=== PATIENT | female | born 1955 | race Caucasian/White ===

== ENCOUNTER → 2019-03-16 07:39 | Outpatient (CLI) | payer OTHER, SELFPAY ==
--- NOTE | 2019-03-16 | DI.RAD.S_ITS ---
PROCEDURE: FL SHOULDER INJECTION MR/CT RT INDICATIONS: Chronic right shoulder pain TECHNIQUE: The indications, alternatives, benefits, risks, and complications of the procedure were explained to the patient. Written informed consent was obtained and placed in the chart. The shoulder was examined fluoroscopically and a site for needle placement chosen for entry into the glenohumeral joint from an anterior approach. The skin was prepped and draped in a sterile fashion, and 1% lidocaine infiltrated from skin down to joint capsule. A spinal needle was inserted into the glenohumeral joint, and a small amount of iodinated contrast media injected to confirm intra-articular placement of the needle tip. This was followed by approximately 12 mL dilute solution of a gadolinium containing MR contrast agent. The needle was removed and a dressing was applied. The patient was given postprocedural instructions and sent to the MR suite for MR imaging. FINDINGS: A single fluoroscopic spot image demonstrates intra-articular location of injected iodinated contrast. IMPRESSION: Successful fluoroscopically guided administration of dilute Gadolinium solution into the shoulder joint for MR arthrogram. Dictated by: Brittnee Radford M.D. on 03/16/2019 at 10:06 Approved by: Brittnee Radford M.D. on 03/16/2019 at 10:06
--- NOTE | 2019-03-16 | DI.MRI.S_ITS ---
PROCEDURE: MR SHOULDER RT W CON INDICATIONS: Chronic right shoulder pain TECHNIQUE: After the administration of 12 mL of dilute intra-articular Gadolinium contrast, oblique coronal T1 and T2 spin echo with fat saturation, oblique sagittal T1 spin echo with and without fat saturation, oblique sagittal T2 fast spin echo with fat saturation, axial T1 spin echo with fat saturation through the shoulder. COMPARISON: None. FINDINGS: Image quality: Diagnostic. Rotator cuff: There is a large irregular full-thickness tear identified involving the superior aspect of the rotator cuff with a complete tear of the supraspinatus tendon. This tear measures at least 3 cm in transverse dimension with retraction of the torn tendon fragments up to approximately 2.9 cm. The full-thickness component involving the anterior/superior fibers of the infraspinatus tendon at its junction with the supraspinatus tendon is present with corresponding tendinopathy and low to moderate grade partial-thickness tearing involving the posterior-inferior fibers. The teres minor tendon is intact. The subscapularis tendon appears to demonstrate low-grade partial-thickness tearing. There is tendinopathy. Mild supraspinatus and infraspinatus muscle atrophy is present. No significant subscapularis or teres minor muscle atrophy is appreciated. Bones and bursae: No acute fracture or dislocation is evident. Postoperative changes of the humeral head are present suggesting prior rotator cuff repair. There mild degenerative changes of the glenohumeral and moderate degenerative changes of the acromio clavicular joints. There is adequate distention of the glenohumeral joint with the injected contrast. A large proportion of this contrast extends into the subacromial subdeltoid bursa. Capsule and soft tissues: Heterogeneity of the posterior labrum is identified without a displaced tear appreciated. The long head of the biceps tendon is subluxed from the bicipital groove and is edematous and thickened. No acute injuries are suspected involving the glenohumeral ligaments. IMPRESSION: 1. Large full-thickness supraspinatus tendon tear. 2. Predominant low to moderate grade partial-thickness tearing of the infraspinatus tendon with corresponding tendinopathy. A full-thickness tear is present near its junction with the supraspinatus tendon. 3. Low-grade partial-thickness tearing and tendinopathy of the subscapularis tendon. 4. Mild supraspinatus and infraspinatus muscle atrophy. 5. Mild to moderate degenerative changes of the right shoulder joints. 6. Mild posterosuperior labral degeneration without a displaced tear evident. 7. Moderate tendinopathy involving the long head of the biceps tendon. Dictated by: Jhonatan Carrizaels M.D. on 03/16/2019 at 9:19 Approved by: Jhonatan Carrizales M.D. on 03/16/2019 at 9:24
== END ==
PROVIDERS: PCP Family Medicine; Visit Provider Family Medicine
DX: M25.511 Pain in right shoulder (principal); M75.121 Complete rotator cuff tear or rupture of right shoulder, not specified as traumatic; M19.011 Primary osteoarthritis, right shoulder; M62.511 Muscle wasting and atrophy, not elsewhere classified, right shoulder; G89.29 Other chronic pain
CPT/HCPCS: 23350; 73222; 77002